=== PATIENT | male | born 1965 | race Caucasian/White ===

== ENCOUNTER 2016-10-03 20:29 | Emergency (ER) | payer OTHER ==
[~2016-10-03] VITALS: Ht 170.2 cm; Wt 84.3 kg
[~2016-10-03 20:29] MED LIST: ACET-1256 PO; BNC/20125 PO; OXYC1TAB3 PO
[2016-10-03 20:30] VITALS: Ht 170.2 cm; Wt 84.3 kg
[2016-10-03 20:54] VITALS: TEMP 36.9; O2SAT 99
[2016-10-03 21:05] LABS: HEMATOCRIT 47.4 % (42-52); MEAN CORPUSCULAR HEMOGLOBIN 30.1 pg (25-34); MEAN CORPUSCULAR HGB CONC 35.9 g/dl (32-36); MEAN PLATELET VOLUME 10.9 fL (7.4-10.4); PLATELET COUNT 308 K/uL (130-400); RED BLOOD COUNT 5.64 M/uL (4.7-6.1); WHITE BLOOD COUNT 13.43 K/uL (4.8-10.8)
[2016-10-03 21:11] LABS: URINE APPEARANCE CLEAR (CLEAR); URINE BILIRUBIN NEG (NEG); URINE COLOR YELLOW; URINE EPITHELIAL CELL AUTO 20-30 /lpf (0-5); URINE NITRITE NEG (NEG); URINE SPECIFIC GRAVITY 1.021 (1.000-1.030); UROBILINOGEN NEG (NEG); ZZUR CULT IF INDIC CLEAN CATCH YES
[2016-10-03 21:12] LABS: BUN/CREATININE RATIO 15.4 (10-20); CALCIUM 9.2 mg/dl (8.5-10.1); CREATININE 1.1 mg/dl (0.60-1.40)
[2016-10-03 21:13] LABS: MANUAL MICROSCOPIC REQUIRED? NO; REVIEW REQ? YES
[2016-10-03 21:13] LABS: INR 1.1 (0.9-1.1); PARTIAL THROMBOPLASTIN RATIO 1.1; PROTHROMBIN TIME (PATIENT) 11.4 SECONDS (9.0-12.0)
--- NOTE | 2016-10-03 21:16 | DIAGNOSTIC IMAGING REPORT ---
CHEST ONE VIEW PORTABLE CLINICAL HISTORY: chest pain dyspnea COMPARISON STUDY: 07/11/2016 FINDINGS: The bones soft tissues and hemidiaphragms are normal. The cardiomediastinal silhouette is normal. The lungs are clear. The pulmonary vasculature is normal. IMPRESSION: Negative chest. Electronically signed by: Tyrone Alvarado M.D. 10/03/2016 9:15 PM Dictated Date/Time: 10/03/2016 9:15 PM
--- NOTE | 2016-10-03 22:06 | DIAGNOSTIC IMAGING REPORT ---
ABDOMEN AND PELVIS CT WITHOUT CONTRAST CT DOSE: 1346.17 mGy.cm HISTORY: Abdominal pain left flank pain TECHNIQUE: Multiaxial CT images of the abdomen and pelvis were performed without the use of intravenous and oral contrast according to the standard department stone protocol. COMPARISON STUDY: 07/19/2016. FINDINGS: Lung bases remain clear. Configuration of liver and spleen are unremarkable. Small left renal cyst unchanged. Small punctate renal calcifications are nonobstructing and unchanged from the prior study. Pancreas is unremarkable. There are findings of chronic scattered colonic diverticulosis. The appendix is been surgically removed. Potential trace amount of pericolonic infiltrative change at the juncture of the descending and sigmoid colonic regions. A small acute diverticulitis component is considered. There is no evidence for abscess collection or obstruction. There is small fat-containing hernias bilaterally. These are non bowel containing nonobstructive findings. Patchy joint change of the sacrum is similar. Postoperative changes of the low lumbar spine are again noted. IMPRESSION: 1. No evidence for an obstructing urinary tract calculus. 2. Several nonobstructing renal calcifications bilaterally. 3. Scattered colonic diverticulosis. Small focus of minimal acute diverticulitis juncture of the descending and sigmoid colon. 4. No evidence for obstruction abscess or collection Electronically signed by: Tyrone Alvarado M.D. 10/03/2016 10:04 PM Dictated Date/Time: 10/03/2016 9:58 PM
[2016-10-03 22:51] LABS: ALB/GLOB RATIO 0.8 (0.9-2); CKMB/CK RATIO 1.6 (0-3.0); POTASSIUM 3.8 mmol/L (3.5-5.1)
[2016-10-03] MEDS ORDERED: OXYCODONE HCL IR 5 MG TAB (IMMEDIATE RELEASE) PO STA (23:04)
[2016-10-03] MEDS ORDERED: METRONIDAZOLE 250 MG TAB PO STA ×2 (23:04)
[2016-10-03] MEDS ORDERED: OXYCODONE IR HOME PACK PO ONE (23:15)
[2016-10-03] MEDS ORDERED: CIPROFLOXACIN 500MG HOME PACK PO ONE (23:15)
[2016-10-03] MEDS ORDERED: EMPTY 8 DRAM VIAL ONE (23:16)
[2016-10-03 23:25] VITALS: BP 144/87; PULSE 71; O2SAT 95
[2016-10-03] MEDS ORDERED: CIPR-255 PO (23:30)
[2016-10-03] MEDS ORDERED: METR-163 PO (23:30)
[2016-10-03] MEDS ORDERED: OXYC1TAB3 PO (23:30)
--- NOTE | 2016-10-04 03:11 | EMERGENCY ROOM VISIT NOTE ---
History Report prepared by Rufino: Lilo Jackson Under the Supervision of: Dr. Ruddy Jacome M.D. First contact with patient: 21:07 Chief Complaint: CHEST PAIN Stated Complaint: CHEST/BACK/GROIN PAIN Nursing Triage Summary: patient with pain in the right groin that goes up his back. also has pain in the chest into the shoulders for two days with some nausea History of Present Illness The patient is a 51 year old male who presents to the Emergency Room with complaints of constant left sided chest pain beginning 3 days prior to arrival. He rates the pain as 7/10 in severity and describes it as a tightness. The patient states that the pain radiates down his left side to his ribs. He was sitting down when the pain came on. He has had these symptoms before and was told it was a pulled muscle. The patient states that this pain feels similar to that time. He is also experiencing groin pain, left sided flank pain, blood in urine and nausea. He took Tylenol for the pain. Pt denies LOC, headache, fevers , chills, diaphoresis, visual changes, neck pain, breathing difficulties, vomiting, abdominal pain, back pain, melena, hematochezia, urinary symptoms, numbness, weakness, lymphadenopathy, rash, or other complaints. Source of History: patient Onset: 3 days [employer] Position: chest (left) Symptom Intensity: 7/10 Quality: other (tightness) Timing: constant Modifying Factors (Relieving): tylenol Associated Symptoms: + nausea, No SOB, No fevers Note: Patient has groin pain. Review of Systems See HPI for pertinent positives and negatives. A total of ten systems were reviewed and were otherwise negative. Past Medical & Surgical Medical Problems: (1) Chest pain (2) Chest pain (3) Coronary Atherosclerosis Of [place] Coronary Vessel (4) Diverticulitis (5) Headache (6) History of kidney stones (7) Hyperlipidemia Nec/Nos (8) Hypertension Nos (9) Left ureteral calculus (10) Old Myocardial Infarct (11) Personal History Of Urinary Calculi (12) Right shoulder pain (13) Ureteral stenosis Surgical Problems: (1) H/O lithotripsy (2) History of appendectomy (3) History of back surgery Family History Cancer FH: heart disease Hypertension Kidney disease Kidney stones Lung disease Seizures Social History Smoking Status: Never Smoker Alcohol Use: none Drug Use: none Marital Status: in relationship Housing Status: lives alone Occupation Status: employed Current/Historical Medications Scheduled Ciprofloxacin Hcl (Cipro), 500 MG PO BID Metronidazole (Flagyl), 500 MG PO TID Scheduled PRN Acetaminophen (Tylenol), 1,000 MG PO Q6 PRN for Pain or Fever Oxycodone Ir (Roxicodone Ir), 1-2 TAB PO Q4H PRN for Pain Allergies Coded Allergies: NSAIDs (Verified Allergy, Intermediate, HIVES, 10/03/16) Penicillins (Verified Allergy, Intermediate, HIVES, 10/03/16) Tramadol (Verified Adverse Reaction, Intermediate, SEIZURES, 10/03/16) Ketorolac Tromethamine (Verified Adverse Reaction, Mild, GI SYMPTOMS, ) Physical Exam Vital Signs Date Time Temp Pulse Resp B/P Pulse Ox O2 Delivery O2 Flow Rate FiO2 10/03/16 23:25 71 16 144/87 95 Room Air 10/03/16 21:52 64 20 137/85 96 Room Air 10/03/16 20:54 99 Room Air 10/03/16 20:54 36.9 85 16 148/102 99 Room Air 10/03/16 20:50 75 10/03/16 20:48 99 Room Air 10/03/16 20:47 99 Room Air 10/03/16 20:30 36.9 85 16 148/102 97 Room Air Physical Exam GENERAL: Awake, alert, well-appearing, in no distress HENT: Normocephalic, atraumatic. Oropharynx unremarkable. EYES: Normal conjunctiva. Sclera non-icteric. NECK: Supple. No nuchal rigidity. FROM. No JVD. RESPIRATORY: Clear to auscultation. CARDIAC: Regular rate, normal rhythm. Extremities warm and well perfused. Pulses equal. ABDOMEN: Soft, non-distended. Left lower quadrant tenderness to palpation. No rebound or guarding. No masses. RECTAL: Deferred. MUSCULOSKELETAL: Chest examination reveals no tenderness. The back is symmetrical on inspection without obvious abnormality. There is left CVA tenderness to palpation. No joint edema. LOWER EXTREMITIES: Calves are equal size bilaterally and non-tender. No edema. No discoloration. NEURO: Normal sensorium. No sensory or motor deficits noted. SKIN: No rash or jaundice noted. Medical Decision & Procedures ER Provider Diagnostic Interpretation: X-ray: Per my interpretation, radiologist review. CHEST ONE VIEW PORTABLE CLINICAL HISTORY: chest pain dyspnea COMPARISON STUDY: 07/11/2016 FINDINGS: The bones soft tissues and hemidiaphragms are normal. The cardiomediastinal silhouette is normal. The lungs are clear. The pulmonary vasculature is normal. IMPRESSION: Negative chest. Electronically signed by: Tyrone Alvarado M.D. 10/03/2016 9:15 PM Dictated Date/Time: 10/03/2016 9:15 PM Laboratory Results 10/03/16 20:40 10/03/16 20:40 Test 10/03/16 20:40 10/03/16 20:48 10/03/16 21:09 Red Blood Count 5.64 M/uL (4.7-6.1) Mean Corpuscular Volume 84.0 fL (80-100) Mean Corpuscular Hemoglobin 30.1 pg (25-34) Mean Corpuscular Hemoglobin Concent 35.9 g/dl (32-36) RDW Standard Deviation 42.4 fL (36.4-46.3) RDW Coefficient of Variation 13.7 % (11.5-14.5) Mean Platelet Volume 10.9 fL (7.4-10.4) Prothrombin Time 11.4 SECONDS (9.0-12.0) Prothromb Time International Ratio 1.1 (0.9-1.1) Activated Partial Thromboplast Time 28.2 SECONDS (21.0-31.0) Partial Thromboplastin Ratio 1.1 D-Dimer 250 ug/L FEU (0-500) Anion Gap 11.0 mmol/L (3-11) Est Creatinine Clear Calc Drug Dose 84.3 ml/min Estimated GFR () 90.9 Estimated GFR (Non- 78.4 BUN/Creatinine Ratio 15.4 (10-20) Calcium Level 9.2 mg/dl (8.5-10.1) Total Bilirubin 0.4 mg/dl (0.2-1) Aspartate Amino Transf (AST/SGOT) 20 U/L (15-37) Alanine Aminotransferase (ALT/SGPT) 41 U/L (12-78) Alkaline Phosphatase 101 U/L (45-117) Total Creatine Kinase 191 U/L (39-308) Creatine Kinase MB 3.0 ng/ml (0.5-3.6) Creatine Kinase MB Ratio 1.6 (0-3.0) Total Protein 8.6 gm/dl (6.4-8.2) Albumin 3.9 gm/dl (3.4-5.0) Globulin 4.7 gm/dl (2.5-4.0) Albumin/Globulin Ratio 0.8 (0.9-2) Urine Color YELLOW Urine Appearance CLEAR (CLEAR) Urine pH 5.0 (4.5-7.5) Urine Specific [place] 1.021 (1.000-1.030) Urine Protein NEG (NEG) Urine Glucose (UA) NEG (NEG) Urine Ketones NEG (NEG) Urine Occult Blood 3+ (NEG) Urine Nitrite NEG (NEG) Urine Bilirubin NEG (NEG) Urine Urobilinogen NEG (NEG) Urine Leukocyte Esterase TRACE (NEG) Urine WBC (Auto) 1-5 /hpf (0-5) Urine RBC (Auto) 5-10 /hpf (0-4) Urine Hyaline Casts (Auto) 1-5 /lpf (0-5) Urine Epithelial Cells (Auto) 20-30 /lpf (0-5) Urine Bacteria (Auto) NEG (NEG) Urine Yeast (Auto) PRESENT (NONE PRSENT) Bedside Troponin I 0.000 ng/ml (0-0.045) Laboratory results reviewed by me Medications Administered Medications (Trade) Dose Ordered Sig/Zehar Route Start Time Stop Time Status Last Admin Dose Admin Oxycodone HCl (Roxicodone Immediate Rel 5MG Home Pack) 1 homepack UD ONCE PO 10/03/16 23:15 10/03/16 23:16 DC 10/03/16 23:23 1 HOMEPACK Ciprofloxacin (Cipro 500MG Home Pack) 1 homepack UD ONCE PO 10/03/16 23:15 10/03/16 23:16 DC 10/03/16 23:23 1 HOMEPACK Metronidazole (Flagyl Tab) 500 mg NOW STAT PO 10/03/16 23:04 10/03/16 23:07 DC 10/03/16 23:24 500 MG Metronidazole (Flagyl Tab) 500 mg NOW STAT PO 10/03/16 23:04 10/03/16 23:07 DC 10/03/16 23:25 500 MG ECG Indication: chest pain Rate (beats per minute): 75 Rhythm: normal sinus Findings: no ectopy, other (poor R wave regression ) ED Course 2118: The patient was evaluated in room B8. A complete history and physical exam was performed. 2303: Flagyl Tab 500 mg PO, Flagyl Tab 500 mg PO, Roxicodone Immediate Rel Tab 5 mg PO. 5: Cipro 500 mg Home Pack 1 homepack PO, Roxicodone Immediate Rel 5 mg Home Pack 1 homepack PO. 2323: I reevaluated the patient. Discussed results and discharge instructions: he verbalized understanding and agreement. The patient is ready for discharge. Medical Decision Prior records/ancillary studies reviewed. Triage Nursing notes reviewed and agree them. The patient's history was concerning for flank and abdominal/chest pain. Differential diagnosis: Etiologies such as renal colic, appendicitis, diverticulitis, mesenteric ischemia, aortic pathology, infections, inflammatory bowel disease, PUD, biliary pathology, UTI, as well as others were entertained. Physical examination findings: As above. ER treatment provided: Roxicodone Oral Cipro and Oral Flagyl On reassessment the patient felt better. Diagnostic interpretation by me: The labs revealed a slight leukocytosis on CBC. Chemistry panel, troponin, d- dimer were negative. LFTs negative.. Urinalysis revealed hematuria. There was no sign of UTI. Imaging studies: CT of the abdomen and pelvis as above. Diverticulitis noted The patient has a focal area of diverticulitis which would explain the area of pain. The patient also has had several days of constant chest pain and has a tender chest wall with negative cardiac diagnostic testing. He's had similar chest issues before. He was treated with Cipro 5, and oxycodone. Prescriptions were written for the same. He is getting a new primary physician and I encouraged him to follow-up this week. I did encourage him to have a colonoscopy through his primary physician.I gave my usual and customary discussion regarding this issue. By the evaluation outlined above emergent etiologies such as appendicitis, renal colic, mesenteric ischemia, aortic pathology, infections, inflammatory bowel disease, PUD, biliary pathology, UTI, as well as others were deemed relatively unlikely. The patient was informed about the findings as listed above. All questions were answered and he was pleased with the treatment. Return instructions were outlined and the patient was discharged in stable condition. Outpatient prescription management: Oxy IR 5mg 1-2 po Q4 hrs prn Cipro and Flagyl Referral: The patient was referred to his PCP for a recheck of the current condition. The chart was completed utilizing [employer] Speech voice recognition software. Grammatical errors, random word insertions, pronoun errors, and incomplete sentences are an occasional consequence of this system due to software limitations, ambient noise, and hardware issues. Any formal questions or concerns about the content, text, or information contained within the body of this dictation should be directly addressed to the physician for clarification. [place] Drug Monitoring Program Search Results: patient reviewed within database, no issues identified Impression Primary Impression: Left sided chest pain Additional Impressions: Diverticulitis Left flank pain Scribe Attestation The scribe's documentation has been prepared under my direction and personally reviewed by me in its entirety. I confirm that the note above accurately reflects all work, treatment, procedures, and medical decision making performed by me. Departure Information Dispostion Home / Self-Care Prescriptions Oxycodone Ir (Roxicodone Ir) 5 Mg Tab 1-2 TAB PO Q4H Y for Pain, #10 TAB Prov: Ruddy Jacome MD 10/03/16 Metronidazole (Flagyl) 500 Mg Tab 500 MG PO TID, #18 TAB Prov: Ruddy Jacome MD 10/03/16 Ciprofloxacin Hcl (CIPRO) 500 Mg Tab 500 MG PO BID, #17 TAB Prov: Ruddy Jacome MD 10/03/16 Referrals No Doctor, Assigned (PCP) Forms HOME CARE DOCUMENTATION FORM, IMPORTANT VISIT INFORMATION Patient Instructions My [facility] Additional Instructions DIVERTICULITIS AND CHEST PAIN INSTRUCTIONS: DO NOT drive, drink alcohol, operate machinery, or perform dangerous activities today. You were given medications in the ER that can affect your ability to safely function or operate a vehicle. Ciprofloxacin(Cipro) 500mg: Take one pill twice daily for 10 days for your bowel infection. All antibiotics can cause diarrhea. If this occurs and you feel worse or it does not resolve in 1-2 days follow up with your doctor or return to the Emergency Department as this could be signs of serious underlying problems. If you experience any pain in your tendons or any tendon injury return to the ER for re-evaluation. Any medication can cause an allergic reaction, stop the pills immediately and return to the ER for rash, hives, breathing difficulties, or swelling. Metronidazole(Flagyl) 500mg: Take one pill 3 times daily for 10 days for your bowel infection. DO NOT drink alcohol or take alcohol containing products with this medication. Any medication can cause an allergic reaction, stop the pills immediately and return to the ER for rash, hives, breathing difficulties, or swelling. Oxycodone (OxyIR) 5mg: Take 1-2 pills every four hours for breakthrough pain. Avoid alcohol, operating machinery or dangerous equipment, working on ladders or roofs, DRIVING, or situations where being under the influence may be dangerous. It is recommended to use an wunj-tmy-[id number] stool softener such as Colace, 100mg twice daily while taking this medication to avoid constipation. Acetaminophen(Tylenol) may be used for fever or pain. Use 1000mg every six hours as needed. Avoid using more than 4000mg in a 24 hour period. Rest and drink plenty of fluids as tolerated. Slow sips of water or sports drinks are recommended instead of large amounts all at once. Continue current medications. Once your stomach is settled start with a clear liquid diet (jello, soup broth, etc.) and then advance as tolerated. You should avoid full, heavy meals for about 24 hrs from the time your symptoms resolved. Return to the ER immediately for worsening or persistent abdominal pain, vomiting, fevers, chest pains, difficulty breathing, black or bloody stools, worsening of your condition, or as needed. Follow up with your primary physician this coming week for a recheck of your current condition. Problem Qualifiers
== END 2016-10-03 23:40 | disposition home or self-care (01) ==
LOC: C.EDB 20:30
DX: R07.9 Chest pain, unspecified (principal); K57.92 Diverticulitis of intestine, part unspecified, without perforation or abscess without bleeding; R10.32 Left lower quadrant pain; R31.9 Hematuria, unspecified; R11.0 Nausea; I25.10 Atherosclerotic heart disease of native coronary artery without angina pectoris; I10 Essential (primary) hypertension; E78.5 Hyperlipidemia, unspecified; Z88.0 Allergy status to penicillin; Z88.6 Allergy status to analgesic agent; I25.2 Old myocardial infarction; Z87.442 Personal history of urinary calculi; Z82.0 Family history of epilepsy and other diseases of the nervous system; Z82.49 Family history of ischemic heart disease and other diseases of the circulatory system; Z83.6 Family history of other diseases of the respiratory system; Z84.1 Family history of disorders of kidney and ureter

== ENCOUNTER 2016-12-14 09:36 | Emergency (ER) | payer OTHER ==
[~2016-12-14] VITALS: Ht 170.2 cm; Wt 87.3 kg
[~2016-12-14 09:36] MED LIST changes: -BNC/20125 PO; +CIPR-255 PO; +METR-163 PO
[2016-12-14 09:44] VITALS: TEMP 36.7; Ht 170.2 cm; Wt 87.3 kg
[2016-12-14] MEDS ORDERED: DEXAMETHASONE SOD INJ 10 MG/ML VIAL IM ONE (10:00)
--- NOTE | 2016-12-14 10:53 | DIAGNOSTIC IMAGING REPORT ---
LUMBAR SPINE 5 VIEWS CLINICAL HISTORY: Low back pain. FINDINGS: 5 views of lumbar spine are compared to study dated 02/18/[address] scan of lumbar spine dated 07/27/2016. The skeletal structures are osteopenic. There is no radiographic evidence of fracture or malalignment. Vertebral body height is maintained throughout the lumbar spine. Alignment appears preserved. There are postoperative changes from laminectomy and posterior fusion at L5-S1. There is complete bony fusion at this level. The orthopedic hardware appears intact. The remaining disc spaces appear preserved. Tiny anterior osteophytes are seen at L4-L5. The transverse and remaining spinous processes appear intact. The partially imaged bony pelvis appears maintained. Suture material and surgical clips are identified in the pelvis. There is a nonobstructed abdominal bowel gas pattern. IMPRESSION: 1. There is no acute bony abnormality identified involving the lumbosacral spine. 2. Osteopenia with postoperative and mild degenerative changes as above. No significant change from recent prior studies. Electronically signed by: Damion Adkins M.D. 12/14/2016 10:51 AM Dictated Date/Time: 12/14/2016 10:49 AM
--- NOTE | 2016-12-14 11:10 | EMERGENCY ROOM VISIT NOTE ---
ED Visit Note First contact with patient: 09:51 CHIEF COMPLAINT: Low back pain HISTORY OF PRESENT ILLNESS: This 51-year-old male presents the ER with chief complaint of low back pain with radiation down both his legs which started yesterday. The patient states that his son jumped on his back as he was walking downhill and the patient fell backwards and his sons and knees went into the patient's back and he twisted his back. The patient states since that time he has pain across the entire lower lumbar region radiating into the groin and down both legs. The patient denies any loss of bowel or bladder control. The patient denies any urinary symptoms. The patient is status post 3 back surgeries which were performed in [place] .his last one was in 2004. REVIEW OF SYSTEMS:6 system review was performed and was negative unless stated otherwise in history of present illness. PMH: The patient is healthy; 3 back surgeries, heart disease, hypertension, kidney disease SOCIAL HISTORY: Patient lives alone. The patient denies tobacco use but admits to occasional alcohol use. PHYSICAL EXAM: Vital Signs normal: Reviewed Nurse's notes and agree. GENERAL: 51-year-old white male appears uncomfortable secondary to back pain. MENTAL STATUS: Alert and oriented in no acute distress. LUMBAR SPINE: No gross bony abnormality noted. Vertical scar noted consistent with prior surgeries. Patient is tender to palpation over the spinous processes. He is tender to palpation over the paravertebral regions bilaterally. The patient has limited range of motion in all directions secondary to pain. Muscle strength is 5 out of 5 bilateral lower extremities and symmetrical. NEURO: Patient is able to heel and toe walk without difficulty. Unable to elicit patellar or Achilles reflexes. Positive straight leg raise bilaterally. EMERGENCY DEPARTMENT COURSE: The patient was evaluated. The patient drove himself to the emergency room. He also took 1 g of Tylenol less than 2 hours before coming to the emergency room. The patient cannot take NSAIDs. He states he can take steroids. The patient was given Decadron 10 mg IM. X-rays of the lumbar spine were ordered and interpreted by the radiologist and myself. DIAGNOSTICS:LUMBAR SPINE 5 VIEWS CLINICAL HISTORY: Low back pain. FINDINGS: 5 views of lumbar spine are compared to study dated 02/18/[address] scan of lumbar spine dated 07/27/2016. The skeletal structures are osteopenic. There is no radiographic evidence of fracture or malalignment. Vertebral body height is maintained throughout the lumbar spine. Alignment appears preserved. There are postoperative changes from laminectomy and posterior fusion at L5-S1. There is complete bony fusion at this level. The orthopedic hardware appears intact. The remaining disc spaces appear preserved. Tiny anterior osteophytes are seen at L4-L5. The transverse and remaining spinous processes appear intact. The partially imaged bony pelvis appears maintained. Suture material and surgical clips are identified in the pelvis. There is a nonobstructed abdominal bowel gas pattern. IMPRESSION: 1. There is no acute bony abnormality identified involving the lumbosacral spine. 2. Osteopenia with postoperative and mild degenerative changes as above. No significant change from recent prior studies. Electronically signed by: Damion Adkins M.D. 12/14/2016 10:51 AM The patient was informed of the findings. The patient was discharged home in stable condition. DIAGNOSIS: Low back pain DISCHARGE INSTRUCTIONS AND TREATMENT: Take Tylenol every 6 hours as needed for pain. Take OxyIR for more severe pain. Do not drive while taking the OxyIR. Take Medrol dosepak as prescribed. Off work tomorrow. If symptoms are not improving in 2-3 days, follow-up your family doctor for reevaluation. Problem List Medical Problems: (1) Chest pain Status: Resolved (2) Chest pain Status: Resolved (3) Coronary Atherosclerosis Of [place] Coronary Vessel Status: Chronic (4) Diverticulitis Status: Chronic (5) History of kidney stones Status: Resolved (6) Hyperlipidemia Nec/Nos Status: Chronic (7) Hypertension Nos Status: Chronic (8) Left ureteral calculus Status: Resolved (9) Old Myocardial Infarct Status: Resolved (10) Personal History Of Urinary Calculi Status: Resolved (11) Right shoulder pain Status: Resolved (12) Ureteral stenosis Status: Resolved Surgical Problems: (1) H/O lithotripsy Status: Resolved (2) History of appendectomy Status: Resolved (3) History of back surgery Status: Resolved Current/Historical Medications Scheduled PRN Acetaminophen (Tylenol), 1,000 MG PO Q6 PRN for Pain or Fever Allergies Coded Allergies: NSAIDs (Verified Allergy, Intermediate, HIVES, 12/14/16) Penicillins (Verified Allergy, Intermediate, HIVES, 12/14/16) Tramadol (Verified Adverse Reaction, Intermediate, SEIZURES, 12/14/16) Ketorolac Tromethamine (Verified Adverse Reaction, Mild, GI SYMPTOMS, 12/14) Vital Signs Date Time Temp Pulse Resp B/P Pulse Ox O2 Delivery O2 Flow Rate FiO2 12/14/16 09:44 36.7 70 18 154/90 96 Room Air Medications Administered Medications (Trade) Dose Ordered Sig/Zehra Route Start Time Stop Time Status Last Admin Dose Admin Dexamethasone Sodium Phosphate (Decadron Inj) 10 mg NOW ONCE IM 12/14/16 10:00 12/14/16 10:01 DC 12/14/16 10:50 10 MG Departure Information Referrals No Doctor, Assigned (PCP) Patient Instructions [facility]
[2016-12-14] MEDS ORDERED: METH4PAK PO (11:15)
[2016-12-14] MEDS ORDERED: OXYC1TAB3 PO (11:15)
[2016-12-14 11:32] VITALS: BP 153/110; PULSE 70; O2SAT 95
== END 2016-12-14 11:59 | disposition home or self-care (01) ==
LOC: C.EDB 09:37 → C.EDA 11:59
DX: M54.5 Low back pain (principal); I12.9 Hypertensive chronic kidney disease with stage 1 through stage 4 chronic kidney disease, or unspecified chronic kidney disease; N18.9 Chronic kidney disease, unspecified; I51.9 Heart disease, unspecified; E78.5 Hyperlipidemia, unspecified; I25.10 Atherosclerotic heart disease of native coronary artery without angina pectoris; I25.2 Old myocardial infarction; K57.32 Diverticulitis of large intestine without perforation or abscess without bleeding; Z87.442 Personal history of urinary calculi; Z98.890 Other specified postprocedural states; Z88.0 Allergy status to penicillin; Z88.6 Allergy status to analgesic agent; Z88.8 Allergy status to other drugs, medicaments and biological substances

== ENCOUNTER 2017-02-17 23:50 | Emergency (ER) | payer SELFPAY ==
[~2017-02-17] VITALS: Ht 170.2 cm; Wt 82.6 kg
[~2017-02-17 23:50] MED LIST changes: -CIPR-255 PO; -METR-163 PO
[2017-02-17 23:57] VITALS: Ht 170.2 cm; Wt 82.6 kg
--- NOTE | 2017-02-18 02:11 | EMERGENCY ROOM VISIT NOTE ---
History First contact with patient: 00:11 Chief Complaint: FALL Stated Complaint: FELL OFF PORCH,RIGHT SIDE SHOULDER PAIN History of Present Illness The patient is a 52 year old male who presents to the Emergency Room with complaints of right shoulder pain and right low back pain. The patient states that he was on the porch horsing around with friends fell off, injuring his right shoulder and right low back. He states that his friend landed on top of him. He rates his discomfort a 7/10. He did not take anything at home for pain. He denies hitting his head or any other injuries. Review of Systems A complete 10 point review of systems was reviewed with the patient with pertinent positives and negatives as per history of present illness. All else were negative. Past Medical/Surgical History Medical Problems: (1) Chest pain (2) Chest pain (3) Coronary Atherosclerosis Of [place] Coronary Vessel (4) Diverticulitis (5) Headache (6) History of kidney stones (7) Hyperlipidemia Nec/Nos (8) Hypertension Nos (9) Left ureteral calculus (10) Old Myocardial Infarct (11) Personal History Of Urinary Calculi (12) Right shoulder pain (13) Ureteral stenosis Surgical Problems: (1) H/O lithotripsy (2) History of appendectomy (3) History of back surgery Family History Cancer FH: heart disease Hypertension Kidney disease Kidney stones Lung disease Seizures Social History Smoking Status: Never Smoker Alcohol Use: none Drug Use: none Marital Status: in relationship Housing Status: lives alone Occupation Status: employed Current/Historical Medications No Active Prescriptions or Reported Meds Allergies Coded Allergies: NSAIDs (Verified Allergy, Intermediate, HIVES, 02/18/17) Penicillins (Verified Allergy, Intermediate, HIVES, 02/18/17) Tramadol (Verified Adverse Reaction, Intermediate, SEIZURES, 02/18/17) Ketorolac Tromethamine (Verified Adverse Reaction, Mild, GI SYMPTOMS, 02/18) Physical Exam Vital Signs Date Time Temp Pulse Resp B/P (MAP) Pulse Ox O2 Delivery O2 Flow Rate FiO2 02/18/17 02:20 76 18 155/91 97 Room Air 02/18/17 02:12 36.7 75 18 133/88 95 02/18/17 01:42 75 18 133/88 95 Room Air 02/17/17 23:57 36.7 77 16 174/90 97 Room Air Physical Exam VITALS: Vitals are noted on the nurse's note and reviewed by myself. Vital signs stable. GENERAL: This is a 52-year-old male, in no acute distress, nondiaphoretic, well- developed well-nourished. SKIN: No significant erythema or ecchymosis. HEENT: Normocephalic. PERRLA. EOMI. Nares patent. Mucous membranes moist. Neck is supple without nuchal rigidity. HEART: Regular rate and rhythm without murmurs gallops or rubs. LUNGS: Clear to auscultation bilaterally without wheezes, rales or rhonchi. ABDOMEN: No tenderness to palpation. MUSCULOSKELETAL: There is diffuse tenderness over the right shoulder. Full range of motion of the shoulder. No deformities. There is also tenderness to the right lumbar paraspinous muscles. No significant tenderness to the lumbar spinous processes. NEURO: Patient was alert and oriented to person place and time. Normal sensation to light and sharp touch. Medical Decision & Procedures ER Provider Diagnostic Interpretation: RIGHT SHOULDER X-RAY: No fractures or dislocations. LUMBAR SPINE X-RAY: No obvious fractures or dislocations. Hardware appears intact. Medications Administered Medications (Trade) Dose Ordered Sig/Zehra Route Start Time Stop Time Status Last Admin Dose Admin Acetaminophen/ Hydrocodone Bitart ([place] 5/325mg Home Pack) 1 homepack UD ONCE PO 02/18/17 02:15 02/18/17 02:16 DC 02/18/17 02:14 1 HOMEPACK Medical Decision Differential diagnosis includes fracture, dislocation, contusion, among others. The patient is a 52-year-old male who presents today complaining of low-back pain and right shoulder pain after a fall. X-rays were performed and interpreted by myself as no acute findings. The patient was given a home pack of [place]. I am not comfortable prescribing the patient any further pain medication, as he has received multiple narcotic prescriptions in the past year and has no obvious objective injuries. The patient was instructed to follow-up with his primary care provider for further evaluation. He verbalized understanding of my assessment and treatment plan and was discharged home in good condition. Based on the patient's presentation and work up, I feel the patient is stable for outpatient treatment. The patient was educated to return to the emergency department for any worsening of their current condition or new/concerning symptoms. He will follow up with his PCP. Medication reconciliation: I attest that I have personally reviewed the patient 's current medication list. Blood Pressure Screening: Patient was found to have a slightly elevated blood pressure due to circumstances. I do not believe that the patient requires hypertension monitoring. [place] Drug [place] Search Results: patient reviewed within database (has received multiple narcotic prescriptions from multiple providers in the past year.) Impression Primary Impression: Fall Additional Impression: Contusion of multiple sites Departure Information Dispostion Home / Self-Care Condition GOOD Prescriptions No Active Prescriptions or Reported Meds Referrals No Doctor, Assigned (PCP) Patient Instructions My [facility] Additional Instructions For pain control, you can use the following [id number] medicines (if >12 yo): - Regular strength (325mg/tab) Tylenol (acetaminophen) 2 tabs every 4-6 hours as needed. Do not exceed 12 tablets in a 24 hour period. Avoid taking more than 4 grams (4000 mg) of Tylenol per day. This includes any other sources of acetaminophen you may take on a regular basis. - Regular strength (200 mg/tab) Advil (ibuprofen) 1-2 tabs every 4-6 hours as needed. Do not exceed a dose of 3200 mg per day. You have been given a home pack of [place] to be used for pain control. Take 1-2 tablets every 4-6 hours as needed for pain. This is a narcotic medication. You cannot drive or consume alcohol while on this medicine. This medicine should only be used for pain that cannot be controlled with ofts-cev-fkrsxhi pain medicines. Follow-up with your primary care provider this week. Problem Qualifiers Primary Impression: Fall Encounter type: initial encounter Qualified Codes: W19.XXXA - Unspecified fall, initial encounter
[2017-02-18 02:12] VITALS: TEMP 36.7
[2017-02-18] MEDS ORDERED: NORCO 5/325MG HOME PACK PO ONE (02:15)
[2017-02-18 02:20] VITALS: BP 155/91; PULSE 76; O2SAT 97
--- NOTE | 2017-02-18 07:50 | DIAGNOSTIC IMAGING REPORT ---
RIGHT SHOULDER 3 VIEWS HISTORY: right should pain, fall Right COMPARISON: None. FINDINGS: There is no fracture or dislocation. Soft tissues are unremarkable. No radiopaque foreign bodies. Cartilage space narrowing and small marginal osteophytes at the glenohumeral joint consistent with mild osteoarthritis. IMPRESSION: No fracture or dislocation within the right shoulder. Electronically signed by: Ricky Youngblood M.D. 02/18/2017 7:49 AM Dictated Date/Time: 02/18/2017 7:47 AM
--- NOTE | 2017-02-18 07:57 | DIAGNOSTIC IMAGING REPORT ---
LUMBAR SPINE 5 VIEWS HISTORY: low back pain, fall COMPARISON: Lumbar spine 12/14/2016. FINDINGS: There is no fracture. No subluxation. Mild disc space are at L4-L5. Posterior decompression fusion at L5-S1 with pedicle screws and rods. The hardware appears intact. No fractures identified within the sacrum. IMPRESSION: No fracture or subluxation within the lumbar spine. Electronically signed by: Ricky Youngblood M.D. 02/18/2017 7:55 AM Dictated Date/Time: 02/18/2017 7:54 AM
== END 2017-02-18 02:12 | disposition home or self-care (01) ==
LOC: C.EDB 23:51
DX: M25.511 Pain in right shoulder (principal); M54.5 Low back pain; W17.89XA Other fall from one level to another, initial encounter; Y93.83 Activity, rough housing and horseplay; I25.10 Atherosclerotic heart disease of native coronary artery without angina pectoris; Z87.442 Personal history of urinary calculi; E78.5 Hyperlipidemia, unspecified; I10 Essential (primary) hypertension; I25.2 Old myocardial infarction; Z80.9 Family history of malignant neoplasm, unspecified; Z82.49 Family history of ischemic heart disease and other diseases of the circulatory system; Z84.1 Family history of disorders of kidney and ureter; Z82.0 Family history of epilepsy and other diseases of the nervous system

== ENCOUNTER 2017-03-26 21:22 | Emergency (ER) | payer OTHER ==
[~2017-03-26] VITALS: Ht 170.2 cm; Wt 85.8 kg
[2017-03-26 21:25] VITALS: TEMP 36.9; Ht 170.2 cm; Wt 85.8 kg
[2017-03-26] MEDS ORDERED: OXYCODONE IR HOME PACK PO ONE (21:45)
[2017-03-26] MEDS ORDERED: OXYC1TAB3 PO (21:56)
[2017-03-26] MEDS ORDERED: ACET-1256 PO (21:59)
[2017-03-26 22:03] VITALS: BP 152/104; PULSE 77; O2SAT 95
--- NOTE | 2017-03-26 22:03 | EMERGENCY ROOM VISIT NOTE ---
History First contact with patient: 21:34 Chief Complaint: BACK PAIN Stated Complaint: R LEG LOW BACK PAIN History of Present Illness The patient is a 52 year old male who presents to the Emergency Room with complaints of low back pain that radiates down his right leg that is intermittent for several years has gotten worse over the past few days after he fell down and twisted his leg. Patient states he is able to ambulate. Patient states because this is cleared his back pain. Pain currently 8 out of 10. Worse with movement and better with rest. He called his family care doctor was advised to go the ER. Patient does not have a spine doctor. Use of multiple spine surgeries in the past. Nothing recently. Patient denies chest pain, dyspnea, numbness, tingling, weakness, urinary symptoms, fever, chills, IV drug abuse, loss of bowel or bladder control, saddle anesthesia. Review of Systems See HPI for pertinent positives & negatives. A total of 10 systems reviewed and were otherwise negative. Past Medical/Surgical History Medical Problems: (1) Chest pain (2) Chest pain (3) Coronary Atherosclerosis Of [place] Coronary Vessel (4) Diverticulitis (5) Headache (6) History of kidney stones (7) Hyperlipidemia Nec/Nos (8) Hypertension Nos (9) Left ureteral calculus (10) Old Myocardial Infarct (11) Personal History Of Urinary Calculi (12) Right shoulder pain (13) Ureteral stenosis Surgical Problems: (1) H/O lithotripsy (2) History of appendectomy (3) History of back surgery Family History Cancer FH: heart disease Hypertension Kidney disease Kidney stones Lung disease Seizures Social History Smoking Status: Unknown if Ever Smoked Alcohol Use: none Drug Use: none Marital Status: in relationship Housing Status: lives alone Occupation Status: employed Current/Historical Medications Scheduled PRN Oxycodone Immediate Rel Tab (Roxicodone Ir), 1-2 TAB PO Q4H PRN for Severe Pain Physical Exam Vital Signs Date Time Temp Pulse Resp B/P (MAP) Pulse Ox O2 Delivery O2 Flow Rate FiO2 03/26/17 21:25 36.9 78 18 150/94 97 Room Air Physical Exam VITALS: Vitals are noted on the nurse's note and reviewed by myself. Vital signs hypertensive GENERAL: White male able to ambulate, in no acute distress, nondiaphoretic, well -developed well-nourished. SKIN: Capillary reflex less than 2 seconds. HEENT: Normocephalic. PERRLA. EOMI. Nares patent. Mucous membranes moist. Neck is supple without nuchal rigidity. HEART: Regular rate and rhythm without murmurs gallops or rubs. LUNGS: Clear to auscultation bilaterally without wheezes, rales or rhonchi. No retractions or accessory muscle use. ABDOMEN: Positive bowel sounds x 4. Normal tympanic percussion. Soft, nontender, without masses or organomegaly. Valdes sign negative. No guarding or rebound tenderness. MUSCULOSKELETAL: No gross musculoskeletal defects. No pedal edema. No calf tenderness. No thoracic or lumbar tenderness on exam. Positive straight leg raise on the right. Patient is able to ambulate without difficulties. NEURO: Patient was alert and oriented to person place and time. Normal sensation to light and sharp touch. Deep tendon reflexes 2+ patella bilaterally. No focal neurological deficits. Medical Decision & Procedures ED Course Prior records/ancillary studies reviewed. Triage Nursing notes reviewed The patient's history was concerning for back pain. Differential diagnosis: Etiologies such as musculoskeletal, disc herniation, fracture, aortic disease, metastatic disease, cord compression, discitis, infection, renal colic, gastrointestinal, acute exacerbation of chronic back pain, sciatica, cauda equina, as well as others were entertained. Physical findings: As above. No focal neurologic findings noted. ER treatment provided: Home pack of OxyIR On reassessment the patient felt better. Diagnostics interpreted by me: Deferred This appears to be consistent with lumbar radiculopathy. Patient is a long- standing history of this. He states his acute flare after falling the other day but not his back and is able to ambulate without difficulties. Patient has an allergy to NSAIDs and Ultram. He has done physical therapy the past. He was advised to restart his exercises and to follow-up with orthopedic spine for his ongoing symptoms. He was neurovascularly and neurologically intact. He is well-appearing. He is advised to return to the ER mainly for severe pain, numbness, tingling, inability to walk, worsening signs or symptoms or as needed. The patient's physical examination and detailed history did not reveal any red flags for back pain such as those listed in the differential diagnosis. Therefore advanced diagnostics and consultations were felt to be unwarranted. By the evaluation outlined above emergent etiologies such as fracture, aortic disease, metastatic disease, infection, renal colic, gastrointestinal, cord compression, cauda equina, as well as others were deemed relatively unlikely. The pt informed about the findings as listed above. All questions were answered and pleased with the treatment. Return instructions were outlined and the patient was discharged in stable condition. Outpatient prescription management: Oxy IR 5mg 1-2 po Q4 hrs prn Referral: The patient was referred back to OS and/or primary care physician for follow-up in 2 to 3 days for a recheck of the current condition. Medical Decision As above [place] Drug [place] Search Results: patient reviewed within database, see additional documentation (he does have some narcotics dispensed in the past. Nothing within the past 3 months.) Medication Reconcilliation Current Medication List: was personally reviewed by me Blood Pressure Screening Patient's blood pressure: Elevated blood pressure Blood pressure disposition: Elevated BP felt to be situational Impression Primary Impression: Lumbar radiculopathy Departure Information Dispostion Home / Self-Care Condition GOOD Prescriptions Oxycodone Immediate Rel Tab (ROXICODONE IR) 5 Mg Tab 1-2 TAB PO Q4H Y for Severe Pain, #10 TAB Prov: Yeimy Alfaro ., WENDY 03/26/17 Referrals Eulogio Castillo D.O. Forms HOME CARE DOCUMENTATION FORM, IMPORTANT VISIT INFORMATION Patient Instructions Lumbar Radiculopathy, My [facility] Additional Instructions DO NOT drive, drink alcohol, operate machinery, or perform dangerous activities today. You were given medications in the ER that can affect your ability to safely function or operate a vehicle. Oxycodone (OxyIR) 5mg: Take 1-2 pills every four hours for breakthrough pain. Avoid alcohol, operating machinery or dangerous equipment, working on ladders or roofs, DRIVING, or situations where being under the influence may be dangerous. It is recommended to use an lzfx-cwc-mmqpudz stool softener such as Colace, 100mg twice daily while taking this medication to avoid constipation. Acetaminophen(Tylenol) may be used for fever or pain. Use 1000mg every six hours as needed. Avoid using more than 3000mg in a 24 hour period. This medication can be taken if you need to drive, work, or perform activities which may be dangerous when taking narcotic pain medication. Rest and avoid heavy lifting until your symptoms resolve and then gradually return to full activity. A good rule of thumb is if it hurts your back to perform a certain activity, then it should be avoided until you are healthy again. A heating pad, warm compresses, or a hot shower may help with tight muscles and can be done several times a day as needed. Continue current medications. Return to the ER immediately for any numbness, tingling, severe pain, loss of control of your bowels or bladder, inability to walk, or as needed. Follow up with your primary care physician/orthopedics spine within 3-5 days for a recheck of your current condition.
== END 2017-03-26 22:05 | disposition home or self-care (01) ==
LOC: C.EDB 21:23 → C.EDC 22:05
DX: M54.16 Radiculopathy, lumbar region (principal); X50.0XXA Overexertion from strenuous movement or load, initial encounter; I25.10 Atherosclerotic heart disease of native coronary artery without angina pectoris; Z87.442 Personal history of urinary calculi; E78.5 Hyperlipidemia, unspecified; I10 Essential (primary) hypertension; I25.2 Old myocardial infarction; Z80.9 Family history of malignant neoplasm, unspecified; Z82.49 Family history of ischemic heart disease and other diseases of the circulatory system; Z84.1 Family history of disorders of kidney and ureter; Z82.0 Family history of epilepsy and other diseases of the nervous system

== ENCOUNTER 2017-06-13 21:58 | Emergency (ER) | payer OTHER ==
[~2017-06-13] VITALS: Ht 170.2 cm; Wt 83.6 kg
[2017-06-13 22:06] VITALS: TEMP 36.9; Ht 170.2 cm; Wt 83.6 kg
[2017-06-14 02:00] VITALS: BP 166/90; PULSE 70; O2SAT 96
[2017-06-14] MEDS ORDERED: PRED20TA PO (02:14)
[2017-06-14] MEDS ORDERED: NORCO 5/325MG HOME PACK PO ONE (02:15)
--- NOTE | 2017-06-14 02:15 | EMERGENCY ROOM VISIT NOTE ---
History First contact with patient: 22:30 Chief Complaint: BACK PAIN Stated Complaint: BACK & LEG PAIN History of Present Illness The patient is a 52 year old male who presents to the Emergency Room with complaints of back and right leg pain. The patient reports that he has had back pain radiating down the right leg for the past 2 days. He states that he woke up with the pain 2 days ago and it has worsened over the past 2 days. He states the pain is worse when he is walking. He has been using ice, heat, and Tylenol without relief. He denies any injury to the back or leg. He reports he feels he has had some intermittent swelling of the right leg and calf. The patient does have a history of chronic back pain and has had surgery in the past. He reports the pain is shooting and sharp in nature and he rates the discomfort an 8/10. He does not have a primary care provider or a back surgeon locally. He denies any numbness/weakness of the lower extremities, fevers, abdominal pain, nausea/vomiting, urinary symptoms or bowel/bladder incontinence. Review of Systems A complete 10 point review of systems was reviewed with the patient with pertinent positives and negatives as per history of present illness. All else were negative. Past Medical/Surgical History Medical Problems: (1) Chest pain (2) Chest pain (3) Coronary Atherosclerosis Of [place] Coronary Vessel (4) Diverticulitis (5) Headache (6) History of kidney stones (7) Hyperlipidemia Nec/Nos (8) Hypertension Nos (9) Left ureteral calculus (10) Old Myocardial Infarct (11) Personal History Of Urinary Calculi (12) Right shoulder pain (13) Ureteral stenosis Surgical Problems: (1) H/O lithotripsy (2) History of appendectomy (3) History of back surgery Family History Cancer FH: heart disease Hypertension Kidney disease Kidney stones Lung disease Seizures Social History Smoking Status: Never Smoker Alcohol Use: none Drug Use: none Marital Status: in relationship Housing Status: lives alone Occupation Status: employed Current/Historical Medications Scheduled Prednisone (Prednisone), 0 PO DAILY Scheduled PRN Acetaminophen (Tylenol), 1,000 MG PO Q6 PRN for Pain Physical Exam Vital Signs Date Time Temp Pulse Resp B/P (MAP) Pulse Ox O2 Delivery O2 Flow Rate FiO2 06/14/17 02:00 70 18 166/90 96 Room Air 06/14/17 00:05 66 18 135/93 98 Room Air 06/13/17 22:06 36.9 64 16 168/104 98 Room Air Physical Exam VITALS: Vitals are noted on the nurse's note and reviewed by myself. Vital signs stable. GENERAL: This is a 52-year-old male, in no acute distress, nondiaphoretic, well- developed well-nourished. SKIN: The skin was without rashes, erythema, edema, or bruising. HEART: Regular rate and rhythm without murmurs gallops or rubs. LUNGS: Clear to auscultation bilaterally without wheezes, rales or rhonchi. ABDOMEN: Soft, nontender to palpation. MUSCULOSKELETAL: There is mild tenderness to palpation in the low back. There is mild tenderness in the right calf. There is no obvious swelling noted. Full range of motion in bilateral lower extremities. Strength 5/5. Patellar reflexes 2+. NEURO: Patient was alert and oriented to person place and time. Normal sensation to light and sharp touch. Deep tendon reflexes 2+ throughout. No focal neurological deficits. Medical Decision & Procedures ER Provider Diagnostic Interpretation: US VENOUS RIGHT LOWER EXTREMITY: No evidence of deep vein thrombosis. Radiologist: Douglas Taylor MD Medications Administered Medications (Trade) Dose Ordered Sig/Zehra Route Start Time Stop Time Status Last Admin Dose Admin Acetaminophen/ Hydrocodone Bitart ([place] 5/325mg Home Pack) 1 homepack UD ONCE PO 06/14/17 02:15 06/14/17 02:16 DC 06/14/17 02:17 1 HOMEPACK Medical Decision Differential diagnosis includes lumbar radiculopathy, DVT, superficial thrombosis, musculoskeletal pain, among others. The patient is a 52-year-old male who presents today complaining of low back pain and right leg pain. There is nothing concerning for cauda equina syndrome or cord compression. The patient feels like he has had right leg swelling. For this reason, ultrasound of the lower extremity was performed. This was read by statrad and revealed no evidence of DVT. I feel the patient's symptoms are likely secondary to lumbar radiculopathy. He will be placed on a prednisone taper and was given referral to Ortho spine. He was given a homepack of [place] for pain. Conservative measures were discussed. He verbalized understanding and was discharged home in good condition. [place] Search Results: patient reviewed within database Medication Reconcilliation Current Medication List: was personally reviewed by me Blood Pressure Screening Patient's blood pressure: Elevated blood pressure Blood pressure disposition: Elevated BP felt to be situational Impression Primary Impression: Lumbar radiculopathy Departure Information Dispostion Home / Self-Care Condition GOOD Prescriptions Prednisone (Prednisone) 20 Mg Tab 0 PO DAILY, #18 TAB 3 DAILY FOR 3 DAYS, THEN 2 DAILY FOR 3 DAYS, THEN 1 DAILY FOR 3 DAYS. Prov: Harini Seymour ., WENDY 06/14/17 Referrals No Doctor, Assigned (PCP) Patient Instructions My [facility] Additional Instructions You have been treated in the Emergency Department for Back Pain. You have been given [place] to be used for pain control. This is a narcotic medication. You cannot drive or consume alcohol while on this medicine. This medicine should only be used for pain that cannot be controlled with over-the- counter pain medicines. Prednisone as prescribed. Start this medication or morning, as it may make it difficult for you to sleep. For pain control, you can use the following frfx-dgi-grcpfng medicines (if >12 yo): - Regular strength (325mg/tab) Tylenol (acetaminophen) 2 tabs every 4-6 hours as needed. Do not exceed 12 tablets in a 24 hour period. Avoid taking more than 4 grams (4000 mg) of Tylenol per day. This includes any other sources of acetaminophen you may take on a regular basis. - Regular strength (200 mg/tab) Advil (ibuprofen) 1-2 tabs every 4-6 hours as needed. Do not exceed a dose of 3200 mg per day. If this is an acute injury, ice can be applied to the area of pain for the first 3 days to help decrease pain and inflammation. After the first 3 days, a heating pad can be used over the area for continued soothing relief. You should schedule a follow-up appointment in 2-3 days with your Primary Care Provider for further evaluation and treatment of your back pain. Return to the Emergency Department if your current symptoms worsen despite treatment course outlined above, or if you develop any of the following symptoms : intractable pain despite aforementioned treatment course, loss of control of your bowel or bladder, numbness or tingling in your groin, or development of a fever.
--- NOTE | 2017-06-14 06:40 | DIAGNOSTIC IMAGING REPORT ---
ULTRASOUND R VENOUS DOPP LOWER EXT UNILAT CLINICAL HISTORY: Right leg pain and swelling COMPARISON STUDY: No previous studies for comparison. FINDINGS: Real-time and color flow Doppler imaging were performed. Flow was seen within the femoral, popliteal and calf veins with no intraluminal thrombus demonstrated. The saphenous vein is patent. IMPRESSION: No evidence of right lower extremity DVT. Electronically signed by: Mauro Rebolledo M.D. 06/14/2017 6:39 AM Dictated Date/Time: 06/14/2017 6:38 AM
== END 2017-06-14 02:22 | disposition home or self-care (01) ==
LOC: C.EDB 22:00 → C.EDA 06-14 02:22
DX: M54.16 Radiculopathy, lumbar region (principal); I25.10 Atherosclerotic heart disease of native coronary artery without angina pectoris; I10 Essential (primary) hypertension; I25.2 Old myocardial infarction; Z87.442 Personal history of urinary calculi; Z90.89 Acquired absence of other organs; Z98.890 Other specified postprocedural states; Z82.49 Family history of ischemic heart disease and other diseases of the circulatory system; Z82.0 Family history of epilepsy and other diseases of the nervous system; Z84.1 Family history of disorders of kidney and ureter

== ENCOUNTER 2017-08-28 18:32 | Emergency (ER) | payer OTHER ==
[~2017-08-28] VITALS: Ht 170.2 cm; Wt 84.6 kg
[~2017-08-28 18:32] MED LIST changes: -OXYC1TAB3 PO; +PRED20TA PO
[2017-08-28 18:39] VITALS: TEMP 36.7; Ht 170.2 cm; Wt 84.6 kg
[2017-08-28] MEDS ORDERED: ACET-1693 PO (19:04)
--- NOTE | 2017-08-28 19:05 | EMERGENCY ROOM VISIT NOTE ---
History First contact with patient: 18:45 Chief Complaint: RIB PAIN Stated Complaint: RIBS AND SIDE PAIN History of Present Illness The patient is a 52 year old male who presents to the Emergency Room with complaints of left flank and left lower rib pain after sustaining a fall this afternoon. The patient slipped on the ice landing on a curb, which struck him in the left side. The pain is worse with inspiration. He denies any shortness of breath. He is having some abdominal pain. He denies any hematuria. He has taken Tylenol with minimal relief. He did not hit his head. He denies any other injuries. He does not take any blood thinners. Review of Systems 6 system review negative. Please see pertinent positives in the history of present illness section. Past Medical/Surgical History Medical Problems: (1) Chest pain (2) Chest pain (3) Coronary Atherosclerosis Of [place] Coronary Vessel (4) Diverticulitis (5) Headache (6) History of kidney stones (7) Hyperlipidemia Nec/Nos (8) Hypertension Nos (9) Left ureteral calculus (10) Old Myocardial Infarct (11) Personal History Of Urinary Calculi (12) Right shoulder pain (13) Ureteral stenosis Surgical Problems: (1) H/O lithotripsy (2) History of appendectomy (3) History of back surgery Family History Cancer FH: heart disease Hypertension Kidney disease Kidney stones Lung disease Seizures Social History Smoking Status: Never Smoker Alcohol Use: none Drug Use: none Marital Status: in relationship Housing Status: lives alone Occupation Status: employed Current/Historical Medications Scheduled Lidocaine (Lidoderm Patch 5%), 1 PATCH TD DAILY Scheduled PRN Acetaminophen Tab (Tylenol), 650 MG PO Q6 PRN for Pain or Fever Oxycodone Ir (Roxicodone Ir), 1-2 TAB PO Q4H PRN for Pain Physical Exam Vital Signs Date Time Temp Pulse Resp B/P (MAP) Pulse Ox O2 Delivery O2 Flow Rate FiO2 08/28/17 20:08 87 20 148/91 97 08/28/17 18:39 36.7 77 16 154/95 97 Room Air Physical Exam VITALS: Vitals are noted on the nurse's note and reviewed by myself. Vital signs stable. GENERAL: 52-year-old male, in obvious pain,, in no acute distress, nondiaphoretic, well-developed well-nourished. SKIN: The skin was intact HEAD: Normocephalic atraumatic. NECK: Supple without nuchal rigidity. HEART: Regular rate and rhythm without murmurs gallops or rubs. LUNGS: Clear to auscultation bilaterally without wheezes, rales or rhonchi. No accessory muscle use. Tenderness to palpation over the left lateral thorax. No crepitus. ABDOMEN: Approximately 5 cm x 3 cm hematoma noted over the left flank area. Positive bowel sounds x 4.Soft, mild tenderness to palpation in the left lower quadrant. MUSCULOSKELETAL: No muscle atrophy, erythema, or edema noted. Strength 5/5 throughout. NEURO: Patient was alert and oriented to person place and time. Normal sensation to touch. No focal neurological deficits. Medical Decision & Procedures ER Provider Diagnostic Interpretation: CT abdomen and pelvis with IV contrast IMPRESSION: 1. No evidence of significant contusion, hematoma, or acute osseous injury. No intra-abdominal injury. 2. Right nephrolithiasis. 3. Post surgical changes of appendectomy. 4. Posterior lumbar fusion of L4-5 with possible underlying Paget's disease. Correlate with the patient's history. Electronically signed by: Kranthi Holt M.D. 08/28/2017 7:42 PM Dictated Date/Time: 08/28/2017 7:33 PM The status of this report is Signed. Draft = Not yet reviewed or approved by Radiologist. Signed = Reviewed and approved by Radiologist. <AttendingPhy></AttendingPhy> <FamilyPhy>No Doctor, Assigned</FamilyPhy> < PrimaryPhy>No Doctor, Assigned</PrimaryPhy> <UnitNumber>[id number]</UnitNumber> <VisitNumber>[id number]</VisitNumber> <PatientName>JENNIFER RONQUILLO</PatientName > <DateOfBirth>1965</DateOfBirth> <Location>[facility]</Location> <ServiceDate> 08/28/17</ServiceDate> <MNE>ESINDI</MNE> <OrderingPhy>Velma Sierra PA-C</ OrderingPhy> <OrderingPhyMNE>f rep ord dr portillo</OrderingPhyMNE> <DictatingPhyMNE> f rep dict dr portillo</DictatingPhyMNE> <CCListMNE>f rep ct mne</CCListMNE> < AdmittingPhyMNE>f pt admit dr portillo</AdmittingPhyMNE> <AttendingPhyMNE>f pt attend dr portillo</AttendingPhyMNE> Medications Administered Medications (Trade) Dose Ordered Sig/Zehra Route Start Time Stop Time Status Last Admin Dose Admin Oxycodone HCl (Roxicodone Immediate Rel 5MG Home Pack) 1 homepack UD ONCE PO 08/28/17 20:00 08/28/17 20:01 DC 08/28/17 19:57 1 HOMEPACK ED Course The patient was seen and examined He declined pain medication Imaging was performed and reviewed The findings were discussed with the patient. He voiced understanding. The patient was given a home pack of oxycodone. Discharge instructions were reviewed, and the patient was discharged in good condition Medical Decision Differential diagnosis: Pneumothorax, hemothorax, splenic injury, renal injury, rib fracture, rib contusion This patient is a 52-year-old male presents to the emergency department with complaints of left side/rib pain after sustaining a fall on ice earlier today. On exam, the patient had a hematoma in the left flank area. He also had some abdominal tenderness. I ordered a CT of the abdomen and pelvis to rule out any intra-abdominal injuries. This was negative. No rib fractures were noted. I believe he is stable to be discharged home. He was given a short course of pain medication and also a lidocaine patch for pain control. He was advised to follow-up with his primary care physician closely. He was also urged to return to the emergency department with any worsening symptoms, especially difficulty breathing or severe abdominal pain. This chart was completed in part utilizing [employer] Speech Voice Recognition software. Attempts were made to minimize the grammatical errors, random word insertions, pronoun errors and incomplete sentences. Any formal questions or concerns about the content, text or information contained within the body of this dictation should be directly addressed to the provider for clarification. Medication Reconcilliation Current Medication List: was personally reviewed by me Blood Pressure Screening Blood pressure disposition: Elevated BP felt to be situational Impression Primary Impression: Fall Departure Information Dispostion Home / Self-Care Condition GOOD Prescriptions Lidocaine (Lidoderm Patch 5%) 1 Ea Tdsy 1 PATCH TD DAILY for Pain, #20 PATCH Prov: Velma Sierra PA-C 08/28/17 Oxycodone Ir (Roxicodone Ir) 5 Mg Tab 1-2 TAB PO Q4H Y for Pain, #10 TAB For Initial Treatment Prov: Velma Sierra PA-C 08/28/17 Referrals No Doctor, Assigned (PCP) Patient Instructions My [facility] Additional Instructions You were evaluated in the emergency department for left side pain after a fall. A CAT scan did not show any signs of broken bones. Please apply a lidocaine patch to the area daily for pain control Tylenol 1000 mg every 8 hours as needed for pain. Do not exceed 3000 mg in a 24 -hour period. Oxycodone Immediate Release (OxyIR) 5mg: Take 1-2 pills every four hours for pain. Avoid alcohol, operating machinery or dangerous equipment, working on ladders or roofs, DRIVING, or situations where being under the influence may be dangerous. It is recommended to use an buon-yov-cfeooqq stool softener such as Colace, 100mg twice daily while taking this medication to avoid constipation. You have been examined and treated today on an emergency basis only. This is not a substitute for, or an effort to provide, complete comprehensive medical care. It is impossible to recognize and treat all injuries or illnesses in a single emergency department visit. It is therefore important that you follow up closely with [facility], your PCP, and/or your specialist(s). Call as soon as possible for an appointment. Please do not hesitate to return to the emergency department with any new, worsening or concerning symptoms; especially, difficulty breathing or severe pain in your abdomen
[2017-08-28] MEDS ORDERED: OPTIRAY 320 IV PRN (19:15)
--- NOTE | 2017-08-28 19:43 | DIAGNOSTIC IMAGING REPORT ---
ABD/PELVIS IV CONTRAST ONLY CLINICAL HISTORY: 52 years-old Male presenting with Contusion L lower lateral Rib and flank, fell on ice. TECHNIQUE: Multidetector CT of the abdomen and pelvis was performed after the administration of intravenous contrast. IV contrast: 93 mL of Optiray 320. A dose lowering technique was used consistent with the principles of ALARA (as low as reasonably achievable). COMPARISON: 10/03/2016. CT DOSE (mGy.cm): The estimated cumulative dose is 399.85 mGy.cm. FINDINGS: Manager Adult topogram: Posterior lumbar fusion hardware. Right lower quadrant surgical clips. Lung bases: Mild mosaic attenuation at the lung bases. Top normal heart size. No pericardial or pleural effusion. Liver: Normal morphology. No liver lesion. Patent hepatic vasculature. Biliary: No intrahepatic or extrahepatic biliary ductal dilatation. Normal gallbladder. Pancreas: Mild parenchymal atrophy. Spleen: Normal. Adrenal glands: Normal. Kidneys and ureters: Punctate nonobstructing calculus in the right kidney. Well-defined hypodensity in the left kidney likely cyst. No hydronephrosis. Normal ureters. Bladder: Normal. Pelvic organs: Prostate and seminal vesicles normal. Bowel: Moderate stool burden. Postsurgical changes of appendectomy. No bowel obstruction. Peritoneal cavity: No free fluid or intraperitoneal gas. Lymph nodes: No enlarged lymph nodes in the abdomen or pelvis. Vasculature: Aorta and IVC patent and normal in caliber. Abdominal wall: Fat-containing left inguinal hernia. Fat-containing umbilical hernia also noted. No infiltration of the subcutaneous fat to suggest contusion. No hematoma. Musculoskeletal: Posterior lumbar fusion hardware of L4-5. Transitional lumbosacral anatomy of L5. Trabecular thickening and heterogeneity of the fused levels could suggest Paget's disease. No displaced fracture of the ribs. No acute osseous injury. IMPRESSION: 1. No evidence of significant contusion, hematoma, or acute osseous injury. No intra-abdominal injury. 2. Right nephrolithiasis. 3. Post surgical changes of appendectomy. 4. Posterior lumbar fusion of L4-5 with possible underlying Paget's disease. Correlate with the patient's history. Electronically signed by: Kranthi Holt M.D. 08/28/2017 7:42 PM Dictated Date/Time: 08/28/2017 7:33 PM
[2017-08-28] MEDS ORDERED: OXYC-90 PO (19:57)
[2017-08-28] MEDS ORDERED: NF656 TD (19:57)
[2017-08-28] MEDS ORDERED: OXYCODONE IR HOME PACK PO ONE (20:00)
[2017-08-28 20:08] VITALS: BP 148/91; PULSE 87; O2SAT 97
[2018-01-02] MEDS ORDERED: OXYC-90 PO (02:25)
[2018-03-18] MEDS ORDERED: OXYC-737 PO (00:58)
[2018-03-18] MEDS ORDERED: CIPR-255 PO (00:58)
== END 2017-08-28 20:09 | disposition home or self-care (01) ==
LOC: C.EDB 18:32 → C.EDD 20:09
DX: R07.81 Pleurodynia (principal); W19.XXXA Unspecified fall, initial encounter; I25.10 Atherosclerotic heart disease of native coronary artery without angina pectoris; K57.92 Diverticulitis of intestine, part unspecified, without perforation or abscess without bleeding; E78.5 Hyperlipidemia, unspecified; I10 Essential (primary) hypertension; I25.2 Old myocardial infarction; Z82.49 Family history of ischemic heart disease and other diseases of the circulatory system; Z82.0 Family history of epilepsy and other diseases of the nervous system; N20.0 Calculus of kidney

== ENCOUNTER 2018-01-01 22:18 | Emergency (ER) | payer OTHER ==
[~2018-01-01] VITALS: Ht 170.2 cm; Wt 92.2 kg
[~2018-01-01 22:18] MED LIST changes: -ACET-1256 PO; +ACET-1693 PO; +NF656 TD; +OXYC1TAB3 PO; -PRED20TA PO
[2018-01-01 22:26] VITALS: Ht 170.2 cm; Wt 92.2 kg
[2018-01-01 23:00] LABS: HEMATOCRIT 43.8 % (42-52); HEMOGLOBIN 16.4 g/dL (14.0-18.0); MEAN CELL VOLUME 84.6 fL (80-100); MEAN CORPUSCULAR HEMOGLOBIN 31.7 pg (25-34); MEAN CORPUSCULAR HGB CONC 37.4 g/dl (32-36); MEAN PLATELET VOLUME 10.3 fL (7.4-10.4); PLATELET COUNT 273 K/uL (130-400); RED CELL DISTRIBUTION WIDTH CV 13.4 % (11.5-14.5); WHITE BLOOD COUNT 11.17 K/uL (4.8-10.8)
[2018-01-01] MEDS ORDERED: ONDANSETRON INJ 2 MG/ML 2 ML VIAL IV PRN (23:15)
[2018-01-01] MEDS ORDERED: SODIUM CHLORIDE 0.9% 1000ML 1,000 ML IV ONE (23:15)
[2018-01-01 23:17] LABS: BLOOD UREA NITROGEN 13 mg/dl (7-18); CALCIUM 8.5 mg/dl (8.5-10.1); CARBON DIOXIDE 25 mmol/L (21-32); CREATININE 0.79 mg/dl (0.60-1.40); GLUCOSE 100 mg/dl (70-99); POTASSIUM 3.7 mmol/L (3.5-5.1); SODIUM 137 mmol/L (136-145)
[2018-01-01] MEDS: MoRPHine SULFATE 4 MG/ML 1 ML CARP\\VIAL IV PRN (23:25)
--- NOTE | 2018-01-01 23:35 | EMERGENCY ROOM VISIT NOTE ---
History First contact with patient: 22:56 Chief Complaint: FLANK PAIN Stated Complaint: RT SIDE PAIN, PAIN W/URINATION History of Present Illness The patient is a 52 year old male who presents to the Emergency Room with complaints of right-sided abdominal pain that started earlier today. It is coming in waves. It seems to be worse with eating and drinking. He describes it as a sharp, stabbing sensation. He denies any fever. Last bowel movement was this morning and reportedly normal. He tried Tylenol with minimal relief of the pain. Review of Systems 10 system review performed and negative unless noted in HPI or below Past Medical/Surgical History Medical Problems: (1) Chest pain (2) Chest pain (3) Coronary Atherosclerosis Of [place] Coronary Vessel (4) Diverticulitis (5) Headache (6) History of kidney stones (7) Hyperlipidemia Nec/Nos (8) Hypertension Nos (9) Left ureteral calculus (10) Old Myocardial Infarct (11) Personal History Of Urinary Calculi (12) Right shoulder pain (13) Ureteral stenosis Surgical Problems: (1) H/O lithotripsy (2) History of appendectomy (3) History of back surgery Family History Cancer FH: heart disease Hypertension Kidney disease Kidney stones Lung disease Seizures Social History Smoking Status: Never Smoker Alcohol Use: none Drug Use: none Marital Status: in relationship Housing Status: lives alone Occupation Status: employed Current/Historical Medications Scheduled PRN Acetaminophen Tab (Tylenol), 650 MG PO Q6 PRN for Pain or Fever Physical Exam Vital Signs Date Time Temp Pulse Resp B/P (MAP) Pulse Ox O2 Delivery O2 Flow Rate FiO2 01/02/18 01:22 36.8 60 18 168/95 96 Room Air 01/01/18 22:26 36.6 78 18 163/96 96 Room Air Physical Exam VITALS: Vitals are noted on the nurse's note and reviewed by myself. Vital signs stable. GENERAL: 52-year-old male, in mild discomfort SKIN: The skin was without rashes, erythema, edema, or bruising. HEAD: Normocephalic atraumatic. MOUTH: Mucous membranes moist. NECK: Supple without nuchal rigidity. No lymphadenopathy. Cervical spine is nontender. No JVD. HEART: Regular rate and rhythm without murmurs gallops or rubs. LUNGS: Clear to auscultation bilaterally without wheezes, rales or rhonchi. No accessory muscle use. ABDOMEN: Positive bowel sounds x 4.Soft, tenderness to palpation in the right upper quadrant. No CVA tenderness bilaterally., without organomegaly. No guarding or rebound tenderness. MUSCULOSKELETAL: No muscle atrophy, erythema, or edema noted. Strength 5/5 throughout. NEURO: Patient was alert and oriented to person place and time. Normal sensation to touch. No focal neurological deficits. Medical Decision & Procedures ER Provider Diagnostic Interpretation: CT abdomen and pelvis without contrast preliminary report No hydronephrosis or ureteral stone 4 mm nonobstructing right renal stone Surgical clips in right lower quadrant appendix is not identified and no evidence of appendicitis Colonic diverticulosis without evidence of acute diverticulitis Posterior fusion of lumbosacral junction. Heterogenous lucencies in the lumbosacral spine, similar to prior Fat-containing umbilical and inguinal hernias Gallbladder ultrasound preliminary report Artifact versus sludge in the gallbladder neck. No shadowing gallstone. No evidence of gallbladder wall thickening or pericholecystic fluid. No biliary dilatation The liver parenchyma is slightly increased in echogenicity, suggestive of fatty infiltration Known right renal stone not demonstrated sonographically. Minimal prominence of renal pelvis without hydronephrosis. No free fluid Laboratory Results 01/01/18 22:40 01/01/18 22:40 Test 01/01/18 22:40 Red Blood Count 5.18 M/uL (4.7-6.1) Mean Corpuscular Volume 84.6 fL (80-100) Mean Corpuscular Hemoglobin 31.7 pg (25-34) Mean Corpuscular Hemoglobin Concent 37.4 g/dl (32-36) RDW Standard Deviation 41.0 fL (36.4-46.3) RDW Coefficient of Variation 13.4 % (11.5-14.5) Mean Platelet Volume 10.3 fL (7.4-10.4) Urine Color YELLOW Urine Appearance CLEAR (CLEAR) Urine pH 6.0 (4.5-7.5) Urine Specific [place] 1.017 (1.000-1.030) Urine Protein NEG (NEG) Urine Glucose (UA) NEG (NEG) Urine Ketones NEG (NEG) Urine Occult Blood TRACE (NEG) Urine Nitrite NEG (NEG) Urine Bilirubin NEG (NEG) Urine Urobilinogen NEG (NEG) Urine Leukocyte Esterase NEG (NEG) Urine WBC (Auto) 0 /hpf (0-5) Urine RBC (Auto) 0-4 /hpf (0-4) Urine Hyaline Casts (Auto) 0 /lpf (0-5) Urine Epithelial Cells (Auto) 5-10 /lpf (0-5) Urine Bacteria (Auto) NEG (NEG) Anion Gap 7.0 mmol/L (3-11) Est Creatinine Clear Calc Drug Dose 121.1 ml/min Estimated GFR () 121.4 Estimated GFR (Non- 104.7 BUN/Creatinine Ratio 16.2 (10-20) Calcium Level 8.5 mg/dl (8.5-10.1) Total Bilirubin 0.4 mg/dl (0.2-1) Direct Bilirubin < 0.1 mg/dl (0-0.2) Aspartate Amino Transf (AST/SGOT) 23 U/L (15-37) Alanine Aminotransferase (ALT/SGPT) 39 U/L (12-78) Alkaline Phosphatase 103 U/L (45-117) Total Protein 8.2 gm/dl (6.4-8.2) Albumin 3.5 gm/dl (3.4-5.0) Medications Administered Medications (Trade) Dose Ordered Sig/Zehra Route Start Time Stop Time Status Last Admin Dose Admin Morphine Sulfate (MoRPHine SULFATE INJ) 4 mg Q1H PRN IV 01/01/18 23:15 01/15/18 23:14 01/02/18 01:22 4 MG Ondansetron HCl (Zofran Inj) 4 mg Q2H PRN IV 01/01/18 23:15 01/31/18 23:14 01/01/18 23:24 4 MG Sodium Chloride 1,000 ml @ 999 mls/hr Q1H1M ONCE IV 01/01/18 23:15 01/02/18 00:15 DC 01/01/18 23:26 999 MLS/HR ED Course Patient was seen and examined Vital signs including blood pressure were reviewed medications list was verified with patient Labs were obtained, and a saline lock was established The patient was medicated with morphine 4 mg IV and Zofran 4 mg IV. He was hydrated with 1 L of normal saline Upon reevaluation, the patient was still complaining of pain. He was given an additional dose of morphine 4 mg IV Imaging was performed and reviewed. The findings were thoroughly discussed with the patient. He voiced understanding. The case was also discussed with my supervising physician Upon reevaluation, the patient was more comfortable. He was comfortable being discharged home. He was given 1 home pack of oxycodone I reviewed discharge instructions the patient. They voiced understanding and had no further questions. Medical Decision DIFFERENTIAL DIAGNOSIS: Gastroenteritis, Hepatitis, cholecystitis, cholangitis, biliary colic, pancreatitis, appendicitis, inguinal hernia, nephrolithiasis, inflammatory bowel disease, mesenteric adenitis, peptic ulcer disease, GERD, gastritis, pancreatitis,, bowel obstruction, splenic infarct, diverticulitis, mesenteric ischemia, metabolic, peritonitis, among others. This patient is a 52-year-old male that presents to the emergency department with right upper abdominal pain. On exam, he was tender in that area. Otherwise, he was afebrile and nontoxic in appearance. His workup was fairly unremarkable. He did have a slight elevation of his white blood cells at 11, 000. LFTs and lipase within normal limits. CT did not have any signs of a ureteral stone. Preliminary review of a right upper quadrant ultrasound did not show any gallstones. The etiology of his pain is unclear. I believe that he is stable to be discharged home with pain medication. He was comfortable with this plan. He will follow-up with his primary care physician, and agrees to return with any new or worsening symptoms This chart was completed in part utilizing [employer] Speech Voice Recognition software. Attempts were made to minimize the grammatical errors, random word insertions, pronoun errors and incomplete sentences. Any formal questions or concerns about the content, text or information contained within the body of this dictation should be directly addressed to the provider for clarification. [place] Drug Monitoring Program Search Results: patient reviewed within database Medication Reconcilliation Current Medication List: was personally reviewed by me Blood Pressure Screening Patient's blood pressure: Elevated blood pressure Blood pressure disposition: Did not require urgent referral Impression Primary Impression: Abdominal pain Departure Information Dispostion Home / Self-Care Condition GOOD Prescriptions Oxycodone Ir (Roxicodone Ir) 5 Mg Tab 1-2 TAB PO Q4H Y for Pain, #15 TAB For Initial Treatment Prov: Velma Sierra PA-C 01/02/18 Referrals No Doctor, Assigned (PCP) Patient Instructions My [facility] Additional Instructions You have been evaluated in the emergency department for abdominal pain. The cause of this is unclear. Oxycodone Immediate Release (OxyIR) 5mg: Take 1-2 pills every four hours for pain. Avoid alcohol, operating machinery or dangerous equipment, working on ladders or roofs, DRIVING, or situations where being under the influence may be dangerous. It is recommended to use an ipmb-iwk-gsscjdr stool softener such as Colace, 100mg twice daily while taking this medication to avoid constipation. Please follow a clear liquid diet for tonight with fluids such as water and Gatorade. If you are feeling better tomorrow, you may advance the diet to a bland diet such as dry toast and crackers Please follow-up with your primary care physician early next week for a recheck Please do not hesitate to return to the emergency department with any new, worsening or concerning symptoms; especially, vomiting, fever or worsening pain It was a pleasure participating in your care tonight Work Instructions Return To Work: 2 days
[2018-01-02 00:23] LABS: ALBUMIN 3.5 gm/dl (3.4-5.0); ALKALINE PHOSPHATASE 103 U/L (45-117); ALT/SGPT 39 U/L (12-78); AST/SGOT 23 U/L (15-37); TOTAL PROTEIN 8.2 gm/dl (6.4-8.2)
[2018-01-02] MEDS: MoRPHine SULFATE 4 MG/ML 1 ML CARP\\VIAL IV PRN (01:22)
[2018-01-02] MEDS ORDERED: OXYCODONE IR HOME PACK PO ONE (02:20)
[2018-01-02] MEDS ORDERED: OXYC1TAB3 PO (02:25)
[2018-01-02 02:32] VITALS: BP 165/90; PULSE 65; TEMP 36.8; O2SAT 96
--- NOTE | 2018-01-02 06:22 | DIAGNOSTIC IMAGING REPORT ---
GALLBLADDER-ABD LIMITED HISTORY: 52 years-old Male RUQ/R flank pain acute right upper quadrant and right flank pain COMPARISON: CT abdomen and pelvis of same day TECHNIQUE: Multiple real-time sonographic images of the abdominal right upper quadrant were obtained assessing grayscale appearance and color flow FINDINGS: Study is limited secondary to patient body habitus. The imaged portions of the pancreas are unremarkable. There is slightly increased echogenicity of the liver without focal mass or intrahepatic biliary ductal dilation identified. Layering gallbladder sludge without shadowing cholelithiasis, wall thickening or pericholecystic fluid. Common bile duct is normal, 5 mm. Interpolar nonobstructing calculus of the right kidney seen on CT study of same day is not definitively seen by ultrasound. No hydronephrosis. IMPRESSION: 1. Minimal layering gallbladder sludge without cholelithiasis or sonographic evidence of acute cholecystitis. 2. No biliary ductal dilation. The above report was generated using voice recognition software. It may contain grammatical, syntax or spelling errors. Electronically signed by: Singh Gomez M.D. 01/02/2018 6:20 AM Dictated Date/Time: 01/02/2018 6:18 AM
--- NOTE | 2018-01-02 06:40 | DIAGNOSTIC IMAGING REPORT ---
ABD/PELVIS WITHOUT FOR STONE HISTORY: 52 years-old Male RUQ/right flank pain hx kidney stones acute right flank pain with history of kidney stones COMPARISON: CT abdomen and pelvis 08/28/2017 TECHNIQUE: Multiple axial CT images of the abdomen and pelvis were obtained without use of IV contrast. A dose lowering technique was used consistent with the principals of JIM. FINDINGS: Lung bases are clear. No pneumatosis or pneumoperitoneum. Imaged inferior cardiac chambers appear mildly enlarged. Liver, spleen, gallbladder, pancreas and adrenal glands are within normal limits. 1.8 cm low attenuating lesion of the medial inferior pole left kidney is unchanged from comparison suggesting renal cyst. There is a 4 mm nonobstructing calculus of the interpolar right kidney. No ureteral calculi or obstructive uropathy. Ureters and bladder are within normal limits. Aorta is unremarkable without aneurysm. No bulky adenopathy. Small fat filled bilateral inguinal hernias. No bowel obstruction or focal bowel wall thickening. Mild colonic diverticulosis without diverticulitis. Surgical clips of the cecum. Appendix not visualized. Soft tissues are within normal limits. Small fat filled periumbilical hernia, diastases 1.3 cm. Heterogeneous appearance of the bone marrow within the sacrum is redemonstrated with coarse trabecular markings, unchanged suggesting underlying Pagets disease. Fusion hardware at L5-S1 appears intact. IMPRESSION: 1. No acute intra-abdominal or intrapelvic abnormality identified. 2. 4 mm nonobstructing calculus of the interpolar right kidney. 3. Colonic diverticulosis without diverticulitis. 4. Unchanged coarsened trabecular markings about the sacrum suggesting possible Paget's disease The above report was generated using voice recognition software. It may contain grammatical, syntax or spelling errors. Electronically signed by: Singh Gomez M.D. 01/02/2018 6:38 AM Dictated Date/Time: 01/02/2018 6:33 AM
== END 2018-01-02 02:37 | disposition home or self-care (01) ==
LOC: C.EDB 22:19
DX: R10.9 Unspecified abdominal pain (principal); I25.10 Atherosclerotic heart disease of native coronary artery without angina pectoris; E78.5 Hyperlipidemia, unspecified; I25.2 Old myocardial infarction